=== PATIENT | female | born 1990 ===

== ENCOUNTER 2020-01-02 05:30 | Inpatient (IN) | payer OTHER ==
[2020-01-02] MEDS ORDERED: Bupivacaine/Epinephrine 0.25% 30 ML VIAL ONE (15:33)
[2020-01-02] MEDS ORDERED: Ibuprofen 800 MG TAB PO PRN (16:58)
[2020-01-02] MEDS ORDERED: Misoprostol 200 MCG TAB PR PRN (16:58)
[2020-01-02] MEDS ORDERED: Promethazine HCl 25 MG/ML VIAL IM PRN (16:58)
[2020-01-02] MEDS ORDERED: Ondansetron PF 4 MG/2 ML Vial IVP PRN (16:58)
[2020-01-02] MEDS ORDERED: Butorphanol Tartrate 1 MG/ML VIAL SLOW IVP PRN (16:58)
[2020-01-02] MEDS ORDERED: HYDROcodone/Acetaminophen 5/325 mg Tablet PO PRN ×2 (16:58)
[2020-01-02] MEDS ORDERED: Methylergonovine 0.2 MG/ML VIAL IM PRN (16:58)
[2020-01-02] MEDS ORDERED: Lidocaine 1% (PF) 30 ML VIAL SC PRN (16:58)
[2020-01-02] MEDS ORDERED: hydrALAZINE 20 MG/ML VIAL SLOW IVP PRN (16:58)
[2020-01-02] MEDS ORDERED: NS w/ Oxytocin 10 units 500 ML IV SCH ×2 (17:00→21:30)
--- NOTE | 2020-01-02 17:02 | PDOC.LDHP ---
Labor and Delivery H&P Chief complaint: other (elective IOL) Current gestational age (weeks): 40 Due date: 01/02/20 Dating criteria: last menstrual period Grav: 6 Para: 3 OB History Details: 2007 at 38 weeks 2009 at 38 weeks 2015 at 38 weeks 2018 SAB 2017-2020 current Current complications: other (Trich positive) Current medications: pre- vitamins Previous surgical history: none Social history: none - OB Labs Blood type: A RH: positive Antibody Screen: negative HIV: negative RPR: negative HEPSAg: negative 1 hour GCT: negative GBS: negative Urine drug screen: negative Rubella: immune - Assessment L&D Assessment: elective induction at term - Plan Plan: admit to L&D, informed consent obtained, anesthesia consult for pain management -: Pitocin IOL
[2020-01-02 19:09] LABS: Hemoglobin 11.8 g/dL (12.0-16.0); Mean Corpuscular HGB CONC 34.5 g/dL (32.0-36.0); Mean Corpuscular Hemoglobin 29.1 pg (27.0-31.0); Mean Corpuscular Volume 84.3 fL (78.0-98.0); Platelet Count 205 thou/uL (130-400); RBC Distribution Width 13.2 % (11.5-14.5); Red Blood Cell (RBC) Count 4.06 mill/uL (4.20-5.40); White Blood Cell (WBC) Count 9.5 thou/uL (4.8-10.8)
[2020-01-02 19:14] VITALS: BMI 38.2
[2020-01-02 19:46] LABS: HBSAg Index 0.23 S/CO (0-0.99); Hep B Surf Ag Non-Reactive S/CO (NonReactive); Syphilis Antibody Nonreactive (Nonreactive); Syphilis Antibody Index 0.04 S/CO (<1.00 Non-Reactive)
[2020-01-02] MEDS: Lactated Ringer's 1,000 ML IV SCH (20:03)
[2020-01-02] MEDS ORDERED: Fentanyl 4 mcg/Bup 0.1% Cadd 100 ML ONE (20:34)
[2020-01-03] MEDS: Lactated Ringer's 1,000 ML IV SCH (00:27)
[2020-01-03] MEDS ORDERED: Misoprostol 200 MCG TAB ONE (01:39)
[2020-01-03] MEDS: NS / Oxytocin 40 units/1000ml 1,000 ML IV PRN ×2 (02:08→03:11)
--- NOTE | 2020-01-03 02:13 | PDOC.OPDEL ---
OB Operative/Delivery Note Delivery Dr/Surgeon: Light Pre-Delivery Diagnosis: elective induction Procedure/Post Delivery Dx: spontaneous vaginal delivery Weeks gestation: 40 Anesthesia: epidural - Findings A Sex: male Weight: 8 lb - 1 min: 8 - 5 min: 9 - Additional Findings/Plan Placenta delivered: spontaneous Repaired Obstetrical Laceration: none Compilations/Other Findings: Nuchal cord, loose Post delivery plan: routine recovery
[2020-01-03] MEDS ORDERED: HYDROcodone/Acetaminophen 5/325 mg Tablet PO PRN ×2 (05:23)
[2020-01-03] MEDS ORDERED: Benzocaine-Menthol 82.5 ML CAN TOP PRN (05:23)
[2020-01-03] MEDS ORDERED: Ondansetron PF 4 MG/2 ML Vial IVP PRN (05:23)
[2020-01-03] MEDS ORDERED: Bisacodyl 10 MG SUPP PR PRN (05:23)
[2020-01-03] MEDS ORDERED: Milk Of Magnesia 30 ML UDCUP PO PRN (05:23)
[2020-01-03] MEDS ORDERED: NS / Oxytocin 40 units/1000ml 1,000 ML IV SCH (05:23)
[2020-01-03] MEDS ORDERED: hydrALAZINE 20 MG/ML VIAL SLOW IVP PRN (05:23)
[2020-01-03] MEDS: Ibuprofen 800 MG TAB PO SCH ×3 (06:28→20:54)
[2020-01-03] MEDS ORDERED: Adacel (T-DAP) 0.5 ML SYRINGE IM ONE (09:00)
[2020-01-03] MEDS: Ferrous Sulfate 325 MG TAB PO SCH ×2 (09:25→17:54)
[2020-01-03] MEDS: Prenatal Vitamin 1 TAB PO SCH (09:35)
[2020-01-03] MEDS: Docusate Calcium (SURFAK) 240 MG CAP PO SCH ×2 (09:35→20:54)
[2020-01-04] MEDS: Ibuprofen 800 MG TAB PO SCH ×2 (04:58→13:27)
[2020-01-04 07:46] VITALS: BP 99/53; TEMP 98
[2020-01-04] MEDS: Ferrous Sulfate 325 MG TAB PO SCH (09:11)
[2020-01-04] MEDS: Prenatal Vitamin 1 TAB PO SCH (09:13)
[2020-01-04] MEDS: Docusate Calcium (SURFAK) 240 MG CAP PO SCH (09:13)
== END 2020-01-04 15:45 | disposition home or self-care (01) | DRG 807 ==
LOC: EEVIPCON 18:10 → L&D 18:10 → 3SW 01-03 05:45
PROVIDERS: ADMIT Obstetrics & Gynecology; ATTEND Obstetrics & Gynecology
PROC: 10E0XZZ Delivery of Products of Conception, External Approach (ICD-10-PCS; principal; 2020-01-03)
DX: O69.81X0 Labor and delivery complicated by cord around neck, without compression, not applicable or unspecified (principal); Z37.0 Single live birth; Z3A.38 38 weeks gestation of pregnancy
CPT/HCPCS: 36415; 51702; 85027; 86780; 86850; 86900; 86901; 87340; J2405; J2590